=== PATIENT | female | born 1950 | race Caucasian/White ===

== ENCOUNTER 2023-06-10 20:30 | Emergency (ER) | payer OTHER ==
[~2023-06-10] VITALS: Ht 162.6 cm; Wt 89.8 kg
[2023-06-10] MEDS ORDERED: hydrALAZINE HCL 20 MG/ML VL IV ONE (21:15)
[2023-06-10] MEDS ORDERED: ACETAMINOPHEN 325 MG TAB PO ONE (21:30)
[2023-06-10] MEDS ORDERED: SODIUM CHLORIDE 0.9% 1,000 ML IV ONE (21:30)
[2023-06-10 21:41] LABS: Basophils # (auto) 0.1 10 ^3/uL (0-0.2); Basophils % (auto) 0.6 % (0.0-2.0); Eosinophils # (auto) 0.4 10 ^3/uL (0-0.8); Eosinophils % (auto) 3.1 % (0.0-7.0); Hematocrit 44.3 % (36.0-46.0); Hemoglobin 14.5 g/dL (12.2-16.2); Lymphocytes # (auto) 3.3 10 ^3/uL (0.4-5.4); Lymphocytes % (auto) 28.4 % (10.0-50.0); Mean Corpuscular Hemoglobin 31.5 pg (28.0-32.0); Mean Corpuscular Hgb Conc. 32.8 g/dL (32.0-36.0); Mean Corpuscular Volume 96.2 fL (80.0-100.0); Monocytes # (auto) 1.1 10 ^3/uL (0-1.3); Neutrophils % (auto) 58.9 % (37.0-80.0); Nucleated Red Blood Cells % 0.1 %; Red Cell Distribution Width 13.5 % (11.8-14.3); White Blood Cell 11.8 10^3/uL (4.4-10.8)
[2023-06-10 21:53] LABS: Alanine Aminotransferase 27 U/L (7-40); Albumin 4.4 g/dL (3.2-4.8); Alkaline Phosphatase 79 U/L (46-116); Anion Gap 8 (5-15); Aspartate Aminotransferase 27 U/L (13-40); BUN/Creatinine Ratio 14.7 (10.0-20.0); Blood Alcohol 5.7 mg/dL (<10); Blood Urea Nitrogen 11 mg/dL (9-23); Calcium 10.8 mg/dL (8.5-10.1); Carbon Dioxide 23 mmol/L (20-30); Chloride 106 mmol/L (98-107); Glucose 112 mg/dL (74-106); Potassium 4.1 mmol/L (3.5-5.1); Sodium 137 mmol/L (136-145)
[2023-06-10 21:54] LABS: Bilirubin, Total 0.7 mg/dL (0.2-1.0)
[2023-06-10 22:11] LABS: INR 1.09 (0.9-1.15); Partial Thromboplastin Time 26.4 SEC (24.5-34.5); Prothrombin Time 11.4 sec (9.3-11.8)
[2023-06-10 22:18] LABS: Magnesium 1.9 mg/dL (1.6-2.6)
[2023-06-10] MEDS ORDERED: IOHEXOL 350 MG/ML 100ML IJ ONE (22:52)
[2023-06-11] VITALS: PULSE 69; RESP 13; TEMP 98.3; O2SAT 98
[2023-06-11] MEDS ORDERED: OXYCODONE W/ ACETAMINOPHEN 5/325MG TABLET PO ONE (01:45)
[2023-06-11 04:01] LABS: Urine Epithelial Cast None Seen /hpf (<5)
[2023-06-11 04:12] LABS: Urine Bacteria NONE SEEN /hpf (None Seen); Urine Blood Negative /uL (Negative); Urine Clarity HAZY (Clear); Urine Color Colorless (Yellow); Urine Protein, UAD Negative (Negative); Urine Specific Gravity 1.032 (1.001-1.035); Urine Urobilinogen Normal (Negative); Urine WBC 7 /hpf (0 - 5)
[2023-06-11 04:37] LABS: Amphetamine Screen, Urine Neg (NEGATIVE); Barbiturate Scree,Urine Neg (NEGATIVE); Benzodiazephine Screen, Urine Neg (NEGATIVE); Cannabinoid Screen, Urine Neg (NEGATIVE); Cocaine Screen, Urine Neg (NEGATIVE); Opiate Scree,Urine Neg (NEGATIVE); Phencyclidine Screen, Urine Neg (NEGATIVE)
[2023-06-11 06:00] VITALS: BP 137/74; PULSE 63; RESP 15; O2SAT 99
== END 2023-06-11 06:17 | disposition left against medical advice (07) ==
LOC: EDBD 20:30 → ER 20:30
DX: G93.49 Other encephalopathy (principal); I10 Essential (primary) hypertension; E66.9 Obesity, unspecified; R51.9 Headache, unspecified; Z68.34 Body mass index [BMI] 34.0-34.9, adult; Z79.899 Other long term (current) drug therapy; Z79.01 Long term (current) use of anticoagulants
CPT/HCPCS: 36415; 70450; 70496; 71045; 80053; 80307; 80320; 81001; 83605; 83735; 83880; 84484; 85025; 85610; 85730; 87040; 87086; 87088; 87186; 93005; 96361; 96374; 99285; J0360; J7030; Q9967

== ENCOUNTER 2024-03-25 23:54 | Emergency (ER) | payer OTHER ==
[~2024-03-25] VITALS: Ht 162.6 cm; Wt 200.0 kg
--- NOTE | 2024-03-26 00:15 | ED.PDOC ---
Musculoskeletal HPI Comments 74-year-old female who came to ER via EMS for left knee pain. Patient is status post left knee replacement. Earlier today she slipped at home and landed badly on the left knee. Noted swelling and tenderness at the left knee. Chief Complaint: Lower Extremity Time Seen by MD: 00:35 Reviewed Notes: Nurses Notes Allergies: Coded Allergies: NO KNOWN ALLERGIES (Unverified , 06/10/23) Information Source: Patient Mode of Arrival: EMS Location: Right Extremity Location: Knee Timing: Minutes Prehospital treatment: None Severity: Moderate Able to Move Extremity: No Bear Weight: Limited Pain: Moderate Hand Dominance: Right Mechanism: Blunt Trauma Circumstances: Fall Onset of Symptoms: After Trauma Symptoms: Swelling, Pain Associated signs and symptoms: Knee pain (left) Past Medical History PAST MEDICAL HISTORY: Denies Surgical History: Denies all surgeries Surgical History (Other): Left knee replacement 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 Family History Family History: Reviewed,noncontributory to illness Social History Smoker: Non-Smoker Alcohol: Denies ETOH Use Drugs: Denies Drug Use Lives In: Home Constitutional: denies: chills, diaphoresis, fatigue, fever, malaise, sweats, weakness, others EENTM: denies: blurred vision, double vision, ear bleeding, ear discharge, ear drainage, ear pain, ear ringing, eye pain, eye redness, hearing loss, mouth pain, mouth swelling, nasal discharge, nose bleeding, nose congestion, nose pain, photophobia, tearing, throat pain, throat swelling, voice changes, others Respiratory: denies: cough, hemoptysis, orthopnea, SOB at rest, shortness of breath, SOB with excertion, stridor, wheezing, others Cardiovascular: denies: chest pain, dizzy spells, diaphoresis, Dyspnea on exertion, edema, irregular heart beat, left arm pain, lightheadedness, palpitations, PND, syncope, others Gastrointestinal: denies: abdomen distended, abdominal pain, blood streaked bowels, constipated, diarrhea, dysphagia, difficulty swallowing, hematemesis, melena, nausea, poor appetite, poor fluid intake, rectal bleeding, rectal pain, vomiting, others Genitourinary: denies: abnormal vagina bleeding, burning, dyspareunia, dysuria, flank pain, frequency, hematuria, incontinence, pain, , vagina discharge, urgency, others Neurological: denies: dizziness, fainting, headache, left sided numbness, left sided weakness, numbness, paresthesia, pre-existing deficit, right sided numbness, right sided weakness, seizure, speech problems, tingling, tremors, weakness, others Musculoskeletal: reports: joint pain, joint swelling (Left knee); denies: back pain, gout, muscle pain, muscle stiffness, neck pain, others Integumetry: denies: bruises, change in color, change in hair/nails, dryness, laceration, lesions, lumps, rash, wounds, others Allergic/Immunocompromised: denies: Difficulty Healing, Frequent Infections, Hives, Itching, others Hematologic/Lymphatic: denies: anemia, blood clots, easy bleeding, easy bruising, swollen glands, others Endocrine: denies: excessive hunger, excessive sweating, excessive thirst, excessive urination, flushing, intolerance to cold, intolerance to heat, unexplained weight gain, unexplained weight loss, others Psychiatric: denies: anxiety, bipolar disorder, depression, hopeless, panic disorder, schizophrenia, sleepless, suicidal, others Physical Exam General Appearance: No Apparent Distress, Normal HEENT: Normal ENT Inspection, Pharynx Normal, TMs Normal Neck: Full Range of Motion, Non-Tender, Normal, Normal Inspection Respiratory: Chest Non-Tender, Lungs Clear, No Accessory Muscle Use, No Respiratory Distress, Normal Breath Sounds Cardiovascular: No Edema, No JVD, No Murmur, No Gallop, Normal Peripheral Pu lses, Regular Rate/Rhythm Breast Exam: Deferred Gastrointestinal: No Organomegaly, Non Tender, No Pulsatile Mass, Normal Bowel Sounds, Soft Genitalia: Deferred Pelvic: Deferred Rectal: Deferred Extremities: No calf tenderness, Normal capillary refill, Normal inspection, Normal range of motion, Non-tender, No pedal edema, Swelling (Left knee) Musculoskeletal : Apperance: Normal Neurologic: Alert, restaurant manager II-XII nml as Tested, No Motor Deficits, Normal Affect, Normal Mood, No Sensory Deficits Cerebellar Function: Normal Reflexes: Normal Skin: Dry, Normal Color, Warm Lymphatic: No Adenopathy Was a procedure done? Was a procedure done?: No Differential Diagnosis EXT Differential Diagnosis: Fracture, Sprain, Dislocation, Strain X-Ray, Labs, Meds, VS Vital Signs Date Time Temp Pulse Resp B/P (MAP) Pulse Ox O2 Delivery O2 Flow Rate FiO2 03/26/24 02:30 70 13 125/54 (77) 94 03/26/24 01:30 67 12 150/74 (99) 93 03/26/24 00:41 98.7 75 18 130/67 (88) 92 98.7 03/26/24 00:41 75 18 92 Room Air* 0 21 03/26/24 00:00 98.7 74 18 102/79 (87) 94 Current Medications Medications (Trade) Dose Ordered Sig/Kerwin Route Start Time Stop Time Status Last Admin Acetaminophen (Tylenol Tablet) 650 mg ONCE ONCE PO 03/26/24 03:00 03/26/24 03:01 DC 03/26/24 03:05 Time of 1ST Reevaluation: 00:31 Reevaluation 1ST: Unchanged Patient Education/Counseling: Diagnosis, Treatment Family Education/Counseling: No Family Present Departure 1 Departure Time of Disposition: 03:15 ([facility] Authorization [id number] has a patellar fracture. Discussed with [facility]. We will discharge patient with a knee immobilizer and rapid orthopedic follow up.) Impression: Primary Impression: Left patella fracture Qualified Codes: S82.035A - Nondisplaced transverse fracture of left patella, initial encounter for closed fracture Disposition: 01 HOME / SELF CARE / HOMELESS Condition: Stable Additional Instructions: You have a patellar fracture. You were placed in a knee immobilizer. You were referred to an orthopedic surgeon at [facility]. They will call you with an appointment this week. For pain you can take the followinam: Ibuprofen 400mg with food Noon: Acetaminophen 1000mg 4pm: Ibuprofen 400mg with food 8pm: Acetaminophen 1000mg If your symptoms worsen or you have any other concerns then please return to the ER. Discharged With: Spouse Critical Care Note Critical Care Time?: No Stability Stability form required: No Heart Score Heart Score: Heart Score Response (Comments) Value History N/A 0 EKG N/A 0 Age N/A 0 Risk Factors N/A 0 Troponin N/A 0 Total 0 I personally scribed for ELO IZQUIERDO MD ([email or web address]) on 03/26/24 at 00:15. Electronically submitted by Álvaro Richmond ([facility]). I personally scribed for ELO IZQUIERDO MD ([email or web address]) on 03/26/24 at 00:35. Electronically submitted by Álvaro Richmond ([email or web address]). ELO IZQUIERDO MD Mar 26, 2024 00:15
[2024-03-26 00:41] VITALS: PULSE 75; RESP 18; TEMP 98.7; O2SAT 92
--- NOTE | 2024-03-26 02:01 | DVH ---
CLINICAL INDICATION: fall TECHNIQUE: XY L KNEE 3V XRAY Comparison: None FINDINGS/IMPRESSION: Fracture of the patella at the midpole. Large knee joint effusion and prepatellar soft tissue edema. Status post total left knee arthroplasty with intact appearing orthopedic hardware. The alignment is anatomical. There is no radiopaque foreign body.
[2024-03-26] MEDS: ACETAMINOPHEN 325 MG TAB PO ONE (03:05)
[2024-03-26 03:58] VITALS: BP 149/56; PULSE 67; RESP 13; O2SAT 92
== END 2024-03-26 04:18 | disposition home or self-care (01) ==
LOC: EDBD 23:54 → ER 23:54
DX: S82.035A Nondisplaced transverse fracture of left patella, initial encounter for closed fracture (principal); Z96.652 Presence of left artificial knee joint; W01.0XXA Fall on same level from slipping, tripping and stumbling without subsequent striking against object, initial encounter; Y93.89 Activity, other specified; Y92.89 Other specified places as the place of occurrence of the external cause; Y99.8 Other external cause status
CPT/HCPCS: 29505; 73562

== ENCOUNTER 2024-08-22 22:09 | Emergency (ER) | payer OTHER ==
[~2024-08-22] VITALS: Ht 165.1 cm; Wt 113.6 kg
[2024-08-22 23:24] VITALS: PULSE 83; RESP 20; O2SAT 93
[2024-08-22] MEDS: SODIUM CHLORIDE 0.9% 1,700 ML IV ONE (23:38)
[2024-08-22 23:42] LABS: Basophils # (auto) 0.1 10 ^3/uL (0-0.2); Basophils % (auto) 0.5 % (0.0-2.0); Eosinophils # (auto) 0.1 10 ^3/uL (0-0.8); Eosinophils % (auto) 0.4 % (0.0-7.0); Hemoglobin 12.5 g/dL (12.2-16.2); Lymphocytes # (auto) 0.8 10 ^3/uL (0.4-5.4); Lymphocytes % (auto) 6.4 % (10.0-50.0); Mean Corpuscular Hgb Conc. 34.6 g/dL (32.0-36.0); Mean Corpuscular Volume 95.5 fL (80.0-100.0); Monocytes # (auto) 1.5 10 ^3/uL (0-1.3); Monocytes % (auto) 11.1 % (0.0-12.0); Neutrophils # (auto) 10.7 10 ^3/uL (1.6-8.6); Neutrophils % (auto) 81.6 % (37.0-80.0); Platelet Count (auto) 171 10^3/uL (140-450); Red Blood Cells 3.77 10^6/uL (4.0-5.20); Red Cell Distribution Width 14.3 % (11.8-14.3); White Blood Cell 13.1 10^3/uL (4.4-10.8)
--- NOTE | 2024-08-22 23:49 | DVH ---
CHEST RADIOGRAPH Indication: fever Technique: Single frontal view of the chest was obtained Comparison: XY CHEST XRAY 1 VIEW on DOS: 06/10/23 FINDINGS: Lines and Tubes: None Lungs: Clear Pleura: No effusion. No pneumothorax. Cardiomediastinal contours: Unremarkable Bones: Unremarkable IMPRESSION: Clear lungs.
[2024-08-23 00:02] LABS: Chloride 102 mmol/L (98-107); Potassium 3.6 mmol/L (3.5-5.1)
[2024-08-23 00:03] LABS: Anion Gap 5 (5-15); Calcium 9.6 mg/dL (8.7-10.4); Carbon Dioxide 27 mmol/L (20-31)
[2024-08-23 00:04] LABS: Sodium 134 mmol/L (136-145)
[2024-08-23 00:09] LABS: BUN/Creatinine Ratio 18.4 (10.0-20.0); Blood Urea Nitrogen 14 mg/dL (9-23)
[2024-08-23 00:12] LABS: Glucose 124 mg/dL (74-106)
[2024-08-23 00:23] LABS: Urine Bacteria None Seen /hpf (None Seen)
[2024-08-23 00:34] LABS: Urine Blood 1+ /uL (Negative); Urine Clarity Ex.Turbid (Clear); Urine Color Light-Orange (Yellow); Urine Protein, UAD 2+ (Negative); Urine Specific Gravity 1.022 (1.001-1.035); Urine Squamous Epithelial Cell None Seen /hpf (<5); Urine Urobilinogen 2 mg/dL (Negative); Urine WBC < 1 /HPF (0-5); Urine pH 6.5 (5.0-9.0)
--- NOTE | 2024-08-23 01:02 | ED.PDOC ---
History of Present Illness HPI Comments 74 y/o morbidly obese F, with a Hx of HTN and recurrent UTI's s/p right patella fracture, is BIBA for c/o fever and dysuria, today. Patient endorses on having symptoms, lately, for the past several days and calling EMS, due to testing positive for UTI at-home, earlier, today. Patient states on her requesting Abx from her PCP and always being denied. She also complains on being constipated for 1x week. Patient, upon arrival, was found with a temperature of 101.2 and a heart rate of 117. She denies any nausea, vomiting, abdominal pain, hematuria, chills, or other associated symptoms at this time. 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 Family History Family History: Reviewed,noncontributory to illness Social History Smoker: Non-Smoker Alcohol: Denies ETOH Use Drugs: Denies Drug Use Lives In: Home All Other Systems: Reviewed and Negative (Comprehensive systems review obtained and negative except for what is stated in the HPI.) Physical Exam General Appearance: No Apparent Distress, Normal HEENT: Normal ENT Inspection, Pharynx Normal, TMs Normal Neck: Full Range of Motion, Non-Tender, Normal, Normal Inspection Respiratory: Chest Non-Tender, Lungs Clear, No Accessory Muscle Use, No Respiratory Distress, Normal Breath Sounds Cardiovascular: No Edema, No JVD, No Murmur, No Gallop, Normal Peripheral Pulses, Regular Rate/Rhythm Breast Exam: Deferred Gastrointestinal: No Organomegaly, Non Tender, No Pulsatile Mass, Normal Bowel Sounds, Soft Genitalia: Deferred Pelvic: Deferred Rectal: Deferred Extremities: No calf tenderness, Normal capillary refill, Normal inspection, Normal range of motion, Non-tender, No pedal edema Musculoskeletal : Apperance: Normal Neurologic: Alert, institutional custodian II-XII nml as Tested, No Motor Deficits, Normal Affect, Normal Mood, No Sensory Deficits Cerebellar Function: Normal Reflexes: Normal Skin: Dry, Normal Color, Warm Lymphatic: No Adenopathy Was a procedure done? Was a procedure done?: No Differential Dx Considerations may include: UTI's, viral syndrome, URI, PNA, among others X-Ray, Labs, Meds, VS Vital Signs Date Time Temp Pulse Resp B/P (MAP) Pulse Ox O2 Delivery O2 Flow Rate FiO2 08/23/24 01:16 97.4 78 12 118/64 (82) 98 97.4 08/23/24 00:26 97.4 82 11 111/46 (67) 96 97.4 08/22/24 23:24 83 20 93 Nasal Cannula* 2 28 08/22/24 23:18 96.8 83 20 145/100 (115) 93 96.8 08/22/24 22:22 101.2 117 18 118/71 (87) 95 101.2 Lab Test 08/23/24 00:38 08/22/24 23:50 08/22/24 23:31 Range/Units Troponin I High Sensitivity 15 15 </=34 ng/L Urine Color Light-orange Yellow Urine Clarity Ex.turbid Clear Urine pH 6.5 5.0-9.0 Urine Specific [place] 1.022 1.001-1.035 Urine Protein 2+ H Negative Urine Ketones Negative Negative Urine Blood 1+ H Negative /uL Urine Nitrite Negative Negative Urine Bilirubin Negative Negative Urine Urobilinogen 2 H Negative mg/dL Urine Leukocyte Esterase 3+ Negative /uL Urine RBC <1 0 - 4 /hpf Urine Microscopic WBC < 1 0-5 /HPF Urine Squamous Epithelial Cells None seen <5 /hpf Urine Bacteria None seen None Seen /hpf Urine Glucose Normal Normal mg/dL White Blood Count 13.1 H 4.4-10.8 10^3/uL Red Blood Count 3.77 L 4.0-5.20 10^6/uL Hemoglobin 12.5 12.2-16.2 g/dL Hematocrit 36.0 36.0-46.0 % Mean Corpuscular Volume 95.5 80.0-100.0 fL Mean Corpuscular Hemoglobin 33.0 H 28.0-32.0 pg Mean Corpuscular Hemoglobin Concent 34.6 32.0-36.0 g/dL Red Cell Distribution Width 14.3 11.8-14.3 % Platelet Count 171 140-450 10^3/uL Mean Platelet Volume 8.2 6.9-10.8 fL Neutrophils (%) (Auto) 81.6 H 37.0-80.0 % Lymphocytes (%) (Auto) 6.4 L 10.0-50.0 % Monocytes (%) (Auto) 11.1 0.0-12.0 % Eosinophils (%) (Auto) 0.4 0.0-7.0 % Basophils (%) (Auto) 0.5 0.0-2.0 % Neutrophils # (Auto) 10.7 H 1.6-8.6 10 ^3/uL Lymphocytes # (Auto) 0.8 0.4-5.4 10 ^3/uL Monocytes # (Auto) 1.5 H 0-1.3 10 ^3/uL Eosinophils # (Auto) 0.1 0-0.8 10 ^3/uL Basophils # (Auto) 0.1 0-0.2 10 ^3/uL Nucleated Red Blood Cells 0.0 % Sodium Level 134 L 136-145 mmol/L Potassium Level 3.6 3.5-5.1 mmol/L Chloride Level 102 98-107 mmol/L Carbon Dioxide Level 27 20-31 mmol/L Anion Gap 5 5-15 Blood Urea Nitrogen 14 9-23 mg/dL Creatinine 0.76 0.550-1.02 mg/dL Glomerular Filtration Rate Calc 81 >90 mL/min BUN/Creatinine Ratio 18.4 10.0-20.0 Serum Glucose 124 H 74-106 mg/dL Lactic Acid Level 1.8 0.4-2.0 mmol/L Calcium Level 9.6 8.7-10.4 mg/dL Current Medications Medications (Trade) Dose Ordered Sig/Kerwin Route Start Time Stop Time Status Last Admin Sodium Chloride 1,700 ml @ 1,700 mls/hr ONCE ONCE IV 08/22/24 23:15 08/23/24 00:14 DC 08/22/24 23:38 Acetaminophen (Ofirmev) 1,000 mg ONCE ONCE IV 08/23/24 01:00 08/23/24 01:01 DC 08/23/24 01:03 Time of 1ST Reevaluation: 23:40 Reevaluation 1ST: Unchanged Patient Education/Counseling: Diagnosis, Treatment, Prognosis, Need For Follow Up Family Education/Counseling: Diagnosis, Treatment, Prognosis, Need For Follow Up, No Family Present Additional Information Previous medical encounters reviewed: March 25, 2024 encounter for left- patella fracture The following tests were ordered, and results were reviewed by me: BMP. troponin, lactic acid w/reflex, UA, CBC, blood culture, urine bacterial culture, CXR Additional Information was gathered from interviewing the following independent historians: EMS I reviewed and agreed with the following test results read by other providers: CXR I discussed treatment and results with medical personnel and: Patient and I consulted Dr Sharma from [facility], who ida transfer pt. pt also is requesting to be transferred. #[phone] Sepsis Sepsis Reasesment Focused Exam Sepsis focused exam: focus exam completed (pt is improved. cap refill<2 secs, HR down to 82, skin with good turgor), time: (113) Departure 1 Departure Time of Disposition: 01:15 Impression: Primary Impression: UTI (urinary tract infection) Qualified Codes: N30.00 - Acute cystitis without hematuria Additional Impression: Sepsis Qualified Codes: A41.9 - Sepsis, unspecified organism Disposition: 02 SHORT TERM HOSPITAL Admit to: [facility] Condition: Serious Discharged With: Self Critical Care Note Critical Care Time?: Yes (55 min-critical care time only) Critical care comment: Due to concerns for patients condition deteriorating, the care required my highest level of attention and readiness to intervene. I assessed the patient, reviewed the medical records, ordered the appropriate tests and treatments, then reassessed for results and responsiveness. I communicated with medical personnel and consultants and formulated a plan of care. Total critical care time excludes any procedures Stability Stability form required: No Heart Score Heart Score: Heart Score Response (Comments) Value History N/A 0 EKG N/A 0 Age N/A 0 Risk Factors N/A 0 Troponin N/A 0 Total 0 I personally scribed for GRANT WORRELL MD ([email or web address]) on 08/23/24 at 01:02. Electronically submitted by Sea Carmichael ([email or web address]). GRANT WORRELL MD Aug 23, 2024 01:02
[2024-08-23] MEDS: ACETAMINOPHEN IV 1000 MG/100ML (10MG/ML) IV ONE (01:03)
[2024-08-23 03:40] VITALS: BP 116/56; PULSE 77; RESP 16; TEMP 98.9; O2SAT 96
[2024-08-23] MEDS ORDERED: PIPERACILLIN-TAZO 4.5GM 100 ML IV SCH (06:00)
== END 2024-08-23 03:40 | disposition short-term general hospital (02) ==
LOC: EDBD 22:09 → ER 22:15
DX: A41.9 Sepsis, unspecified organism (principal); N39.0 Urinary tract infection, site not specified; I10 Essential (primary) hypertension; Z87.440 Personal history of urinary (tract) infections; Z96.652 Presence of left artificial knee joint
CPT/HCPCS: 36415; 71045; 80048; 81001; 83605; 84484; 85025; 87040; 87077; 87086; 87186; 96361; 96374; 99291; J7030; J0131